=== PATIENT | male | born 1965 | race Caucasian/White ===

== ENCOUNTER 2017-11-10 14:35 | Emergency (ER) | payer OTHER ==
[~2017-11-10] VITALS: Ht 177.8 cm; Wt 97.5 kg
[2017-11-10 15:43] LABS: CALCIUM 9.2 mg/dL (8.5-10.1); CREATININE 1.2 mg/dL (0.6-1.3); POTASSIUM 4.2 mmol/L (3.5-5.1)
[2017-11-10] MEDS ORDERED: NORFLEX100 MG PO (17:00)
[2017-11-10] MEDS ORDERED: TRAMADOL 50 MG50 MG PO (17:00)
[2017-11-10 17:10] VITALS: BP 149/85
== END 2017-11-10 17:10 | disposition home or self-care (01) ==
LOC: M.ERS 14:35
PROVIDERS: Physician Assistant
DX: S00.83XA Contusion of other part of head, initial encounter (principal); S10.93XA Contusion of unspecified part of neck, initial encounter; X58.XXXA Exposure to other specified factors, initial encounter; Y93.89 Activity, other specified; Y92.89 Other specified places as the place of occurrence of the external cause; Y99.8 Other external cause status